=== PATIENT | male | born 1980 | race Native Hawaiian/Other Pacific Islander ===

== ENCOUNTER 2021-09-25 11:37 | Outpatient (CLI) | payer OTHER ==
[2021-09-25 11:55] LABS: POTASSIUM 4.7 mmol/L (3.6-5.2)
== END 2021-09-25 19:23 | disposition home or self-care (01) ==
LOC: LAB 11:37
PROVIDERS: ATTEND Nurse Practitioner Family
DX: E87.5 Hyperkalemia (principal)
CPT/HCPCS: 80053